=== PATIENT | male | born 1990 | race Caucasian/White ===

== ENCOUNTER 2016-09-14 21:41 | Emergency (ER) | payer BC ==
[2016-09-14 22:10] VITALS: TEMP 98.5; BMI 24.4
--- NOTE | 2016-09-14 22:13 | PDOC ---
History of Present Illness - History of Present Illness Initial Comments: 09/15/16 00:47 Patient is a 26 year old male with no significant medical hx who is presenting to the ED with shortness of breath for three months and chronic nasal congestion. The patient reports hes been having shortness of breath while at work when hes standing. He states that his shortness of breath worsens with physical exertion. Today his shortness of breath worsened while at work and he went to see his primary physician; the patient was then sent to the ED for rule out of pulmonary embolism. The patient also complains of chronic nasal congestion. He reports that when he tries to blow his nose, he is unable to expel any nasal discharge. The patient has yet to be evaluated by an ENT. The patient denies chest pain, LOC, headache, fever, chills, nausea, vomiting, or diarrhea. PCP: Gus Bates MD <Jessika Zapata - Last Filed: 09/15/16 00:47> <Leona Pierre - Last Filed: 09/15/16 02:01> - General Chief Complaint: Shortness of Breath Stated Complaint: REF BY DOCTOR Time Seen by Provider: 09/14/16 22:09 Past History <Jessika Zapata - Last Filed: 09/15/16 00:47> - Past Medical History Other medical history: denies - Immunization History Immunization Up to Date: Yes - Psycho/Social/Smoking Cessation Hx Suicidal Ideation: No Smoking History: Former smoker Have you smoked in the past 12 months: No Information on smoking cessation initiated: No Hx Alcohol Use: No Drug/Substance Use Hx: No Substance Use Type: None <Leona Pierre - Last Filed: 09/15/16 02:01> - Past Medical History Allergies/Adverse Reactions: Allergies Allergy/AdvReac Type Severity Reaction Status Date / Time No Known Allergies Allergy Verified 09/14/16 21:58 Home Medications: Ambulatory Orders NK [No Known Home Medication] 09/15/16 Review of Systems - Review of Systems Comments:: 09/15/16 00:48 CONSTITUTIONAL: Absent: fever, chills, diaphoresis, generalized weakness, malaise, loss of appetite HEENT: Present: nasal congestion Absent: rhinorrhea, throat pain, throat swelling, difficulty swallowing, mouth swelling, ear pain, eye pain, visual changes CARDIOVASCULAR: Absent: chest pain, syncope, palpitations, irregular heart rate, lightheadedness , peripheral edema RESPIRATORY: Present: shortness of breath Absent: cough, dyspnea with exertion, orthopnea, wheezing, stridor, hemoptysis GASTROINTESTINAL: Absent: abdominal pain, abdominal distension, nausea, vomiting, diarrhea, constipation, melena, hematochezia GENITOURINARY: Absent: dysuria, frequency, urgency, hesitancy, hematuria, flank pain, genital pain MUSCULOSKELETAL: Absent: myalgia, arthralgia, joint swelling SKIN: Absent: rash, itching, pallor HEMATOLOGIC/IMMUNOLOGIC: Absent: easy bleeding, easy bruising, lymphadenopathy, frequent infections ENDOCRINE: Absent: unexplained weight gain, unexplained weight loss, heat intolerance, cold intolerance NEUROLOGIC: Absent: headache, focal weakness or paresthesia, dizziness, unsteady gait, seizure, mental status changes, bladder or bowel incontinence. PSYCHIATRIC: Absent: anxiety, depression, suicidal or homicidal ideation, hallucinations <Kelsie Zapataa - Last Filed: 09/15/16 00:47> *Physical Exam - Vital Signs Last Vital Signs Temp Pulse Resp BP Pulse Ox 98.5 F 69 18 131/75 98 09/14/16 21:59 09/15/16 00:33 09/15/16 00:33 09/15/16 00:33 09/15/16 00:33 - Physical Exam Comments: 09/15/16 00:49 GENERAL: Well developed, well nourished. Awake and alert. No acute distress. HEENT: Normocephalic, atraumatic. PERRLA, EOMI. No conjunctival pallor. Sclera are non- icteric. Moist mucous membranes. Oropharynx is clear. NECK: Supple. Full ROM. No JVD. Carotid pulses 2+ and symmetric, without bruits. No thyromegaly. No lymphadenopathy. CARDIOVASCULAR: Regular rate and rhythm. No murmurs, rubs, or gallops. Distal pulses are 2+ and symmetric. PULMONARY: No evidence of respiratory distress. Lungs clear to auscultation bilaterally. No wheezing, rales or rhonchi. ABDOMINAL: Soft. Non-tender. Non-distended. No rebound or guarding. No organomegaly. Normoactive bowel sounds. MUSCULOSKELETAL: Normal range of motion at all joints. No bony deformities or tenderness. No CVA tenderness. EXTREMITIES: No cyanosis. No clubbing. No edema. No calf tenderness. SKIN: Warm and dry. Normal capillary refill. No rashes. No jaundice. NEUROLOGICAL: Alert, awake, appropriate. Cranial nerves 2-12 intact. Normal speech. Gait is normal without ataxia. PSYCHIATRIC: Cooperative. Good eye contact. Appropriate mood and affect. <BennyJessika - Last Filed: 09/15/16 00:47> - Vital Signs Last Vital Signs Temp Pulse Resp BP Pulse Ox 98.5 F 78 20 143/92 98 09/14/16 21:59 09/14/16 21:59 09/14/16 21:59 09/14/16 21:59 09/14/16 21:59 <Leona Pierre - Last Filed: 09/15/16 02:01> ED Treatment Course - LABORATORY CBC & Chemistry Diagram: 09/14/16 22:31 09/14/16 22:31 - ADDITIONAL ORDERS Additional order review: Laboratory Results 09/14/16 09/14/16 09/14/16 22:35 22:31 22:31 INR 1.12 Sodium Potassium Chloride Carbon Dioxide Anion Gap BUN Creatinine Creat Clearance w eGFR Random Glucose Calcium Total Bilirubin AST ALT Alkaline Phosphatase Creatine Kinase 876 H Creatine Kinase Index 0.5 CK-MB (CK-2) 4.470 H CK-MB (CK-2) Rel Index Cancelled Troponin I < 0.02 Total Protein Albumin 09/14/16 22:31 INR Sodium 136 Potassium 3.8 Chloride 100 Carbon Dioxide 29 Anion Gap 7 L BUN 31 H Creatinine 1.2 Creat Clearance w eGFR > 60 Random Glucose 92 Calcium 10.0 Total Bilirubin 0.8 AST 28 ALT 36 Alkaline Phosphatase 50 Creatine Kinase Creatine Kinase Index CK-MB (CK-2) CK-MB (CK-2) Rel Index Troponin I Total Protein 8.2 Albumin 4.8 09/14/16 22:31 RBC 5.44 MCV 88.6 MCHC 32.2 RDW 14.5 MPV 8.7 Neutrophils % 56.2 Lymphocytes % 34.2 Monocytes % 6.9 Eosinophils % 2.2 Basophils % 0.5 - RADIOLOGY Radiograph Interpretation: 09/15/16 00:49 Art Objects Supervisor: ([email or web address]) Begin of Report Content Referring Physician: Leona Pierre Patient Name: Nancy Golden This is a preliminary report by imaging coroner/medical examiner Exam: CT chest with contrast Images: 982 Clinical indication: Rule out pulmonary embolism. Findings: No filling defects are seen in the main, central or proximal segmental pulmonary arteries. No other infiltrates, nodules or masses are seen. There is no axillary, mediastinal or hilar adenopathy. The heart is within limits for size. There is no pericardial or pleural effusion. The trachea and central bronchi are patent. The thoracic aorta and proximal great vessels have a normal appearance. The visualized upper abdominal viscera appear unremarkable. Impression: No pulmonary embolism identified. No other acute abnormality seen in the chest or visualized upper abdomen. THIS DOCUMENT HAS BEEN ELECTRONICALLY SIGNED Ousmane Tang M.D. 09/15/2016 00:22 CHRISTIANO Garcia Please call Imaging Roll Coating Machine Operator [phone] ([phone]) with questions. End of Report Content - Medications Given in the ED: ED Medications Discontinued Medications Generic Name Dose Route Start Last Admin Trade Name Freq PRN Reason Stop Dose Admin Sodium Chloride 1,000 mls @ 1,000 mls/hr 09/14/16 22:15 09/14/16 22:34 Normal Saline - IV 09/14/16 23:14 1,000 mls/hr ASDIR STA Administration <Jessika Zapata - Last Filed: 09/15/16 00:47> - LABORATORY CBC & Chemistry Diagram: 09/14/16 22:31 09/14/16 22:31 <Leona Pierre - Last Filed: 09/15/16 02:01> Medical Decision Making - Medical Decision Making 09/15/16 00:00 This 26-year-old male was sent in by his primary care physician, Dr. Gus Christianson for intermittent dyspnea for the last 3 months His PCP requested a CT of the chest to rule pulmonary embolus and cardiac enzymes Patient denies chills, nausea, vomiting, productive cough, abdominal pain he smoked cigarettes for 8 months and quit -there is no family history of early cardiac demise 09/15/16 00:11 09/15/16 01:54 -he also has complaints of chronic nasal congestion -His been using "fat burning' food supplemen ts called "shreds" -his bun was elevated to 31 and he received IVF CTA CHEST negative for any pulmonary pathology-no PE -discussed findings w Dr Gus Bates and he was see this later today in his offcie. He asked that he come into his office at noon <Leona Pierre - Last Filed: 09/15/16 02:01> *DC/Admit/Observation/Transfer - Attestations Scribe Attestion: 09/15/16 00:50 Documentation prepared by Jessika Zapata, acting as medical science liaison for Leona Pierre MD. <Jessika Zapata - Last Filed: 09/15/16 00:47> <Leona Pierre - Last Filed: 09/15/16 02:01> Diagnosis at time of Disposition: Dyspnea Qualifiers: Dyspnea type: shortness of breath Qualified Code(s): R06.02 - Shortness of breath - Discharge Dispostion Disposition: HOME Condition at time of disposition: Stable - Referrals Referrals: Gus Bates MD [Primary Care Provider] - - Patient Instructions Printed Discharge Instructions: DI for Shortness of Breath Additional Instructions: PLEASE SEE DR GUS BATES IN HIS OFFICE TODAY SEPTEMBER 15 AT NOON
[2016-09-14] MEDS ORDERED: SODIUM CHLORIDE 1,000 ML IV STA (22:15)
[2016-09-14 22:41] LABS: BASOPHIL 0.5 % (0-2.0); EOSINOPHIL 2.2 % (0-4.5); MCH 28.6 pg (25.7-33.7); MCHC 32.2 g/dl (32.0-35.9); MEAN CELL VOLUME 88.6 fl (80-96); MEAN PLT VOLUME 8.7 fl (7.5-11.1); NEUTROPHILS 56.2 % (42.8-82.8); PLATELET COUNT 282 K/MM3 (134-434); RDW 14.5 % (11.9-15.9); WHITE BLOOD COUNT 9.1 K/mm3 (4.0-10.0)
[2016-09-14 22:54] LABS: INR 1.12 (0.82-1.09); PROTHROMBIN TIME (PATIENT) 12.3 SEC (9.98-11.88)
[2016-09-14 23:06] LABS: ALBUMIN 4.8 g/dl (3.4-5.0); ANION GAP 7 (8-16); CO2 29 mmol/L (21-32); CREATININE 1.2 mg/dL (0.7-1.3); GLUCOSE,RANDOM 92 mg/dL (74-106); SGOT/AST 28 U/L (15-37); SGPT/ALT 36 U/L (12-78)
[2016-09-14 23:07] LABS: TROPONIN I < 0.02 ng/ml (0.00-0.05)
[2016-09-14 23:08] LABS: ALK PHOS 50 U/L (45-117); BILIRUBIN,TOTAL 0.8 mg/dL (0.2-1.0); TOT PROT 8.2 g/dl (6.4-8.2)
[2016-09-15] MEDS ORDERED: SODIUM CHLORIDE 1,000 ML IV STA (00:13)
[2016-09-15 00:35] VITALS: BP 131/75; PULSE 69
--- NOTE | 2016-09-15 09:33 | EKG ---
Test Reason : Blood Pressure : / mmHG Vent. Rate : 055 BPM Atrial Rate : 055 BPM P-R Int : 160 ms QRS Dur : 094 ms QT Int : 422 ms P-R-T Axes : 072 095 050 degrees QTc Int : 403 ms SINUS BRADYCARDIA RIGHTWARD AXIS BORDERLINE ECG NO PREVIOUS ECGS AVAILABLE Confirmed by CONOR SILVA, NÉSTOR ([id number]) on 09/15/2016 9:33:00 AM Referred By: Confirmed By:NÉSTOR PERDOMO MD
== END 2016-09-15 01:06 | disposition home or self-care (01) ==
LOC: JER 21:41
PROC: 3E0337Z Introduction of Electrolytic and Water Balance Substance into Peripheral Vein, Percutaneous Approach (ICD-10-PCS; principal; 2016-09-14)
DX: R06.02 Shortness of breath (principal)
CPT/HCPCS: 36415; 71275-TC; 80053; 82550; 82553; 84484; 85025; 85610; 93005; 93010; 99283-25